=== PATIENT | female | born 1965 | race Two or more races ===

== ENCOUNTER 2021-10-15 17:23 | Inpatient (IN) | payer OTHER ==
[2021-10-15] MEDS ORDERED: Ondansetron 4 MG/2 ML SDV IVPUSH ONE (17:51)
[2021-10-15] MEDS ORDERED: Dextrose 5%-Lactated Ringers 1,000 ML IV SCH (18:00)
[2021-10-15 19:20] LABS: ESTIMATED GFR > 60 mL/min (>60)
[2021-10-15 19:29] LABS: CORONAVIRUS COVID-19 NAA POSITIVE (NEGATIVE)
[2021-10-15] MEDS ORDERED: Sodium Chloride 0.9% 250 ML IV SCH (21:15)
[2021-10-15] MEDS ORDERED: Enoxaparin 40 MG/0.4 ML Syringe SUBCUT STA (21:34)
[2021-10-15] MEDS ORDERED: REMDESIVIR 200 MG in Sodium Chloride 0.9% 250 ML IV ONE (21:36)
[2021-10-15] MEDS ORDERED: Dexamethasone 10 MG/ML SDV IVPUSH STA (21:36)
[2021-10-16] MEDS ORDERED: Potassium Chloride 20 MEQ Tab.ER PO ONE (00:34)
[2021-10-16] MEDS ORDERED: REMDESIVIR 200 MG in Sodium Chloride 0.9% 250 ML IV ONE (03:00)
[2021-10-16 06:42] LABS: ESTIMATED GFR > 60 mL/min (>60)
[2021-10-16] MEDS ORDERED: cefTRIAXone 1 GM in Sodium Chloride 0.9% 100 ML IV SCH (08:00)
[2021-10-16] MEDS: cefTRIAXone 1 GM in Sodium Chloride 0.9% 100 ML IV SCH (08:09)
[2021-10-16] MEDS: Dexamethasone 6 MG TABLET PO SCH (08:09)
[2021-10-16] MEDS ORDERED: Magnesium Sulfate/Water 2 GM/50 ML BAG IV ONE (10:41)
[2021-10-16] MEDS: Lactated Ringers 1,000 ML IV SCH ×2 (13:03→21:13)
[2021-10-16] MEDS: Potassium Chloride 10 MEQ in Premix Bag 1 BAG IV SCH ×4 (13:04→18:26)
[2021-10-16] MEDS: Enoxaparin 30 MG/0.3 ML Syringe SUBCUT SCH ×2 (21:12→23:19)
[2021-10-16] MEDS: traZODone 50 MG Tab PO PRN (21:12)
[2021-10-17] MEDS: REMDESIVIR 100 MG in Sodium Chloride 0.9% 250 ML IV SCH (02:10)
[2021-10-17 07:24] LABS: ESTIMATED GFR > 60 mL/min (>60)
[2021-10-17] MEDS: Lactated Ringers 1,000 ML IV SCH ×2 (08:44→19:25)
[2021-10-17] MEDS: Dexamethasone 6 MG TABLET PO SCH (09:12)
[2021-10-17] MEDS: cefTRIAXone 1 GM in Sodium Chloride 0.9% 100 ML IV SCH (09:12)
[2021-10-17] MEDS ORDERED: Magnesium Sulfate/Water 2 GM/50 ML BAG IV ONE (18:29)
[2021-10-17] MEDS: Morphine 2 MG/ML SYRINGE IVPUSH PRN ×2 (19:16→23:32)
[2021-10-17] MEDS: Enoxaparin 30 MG/0.3 ML Syringe SUBCUT SCH (23:33)
[2021-10-18] MEDS: Morphine 2 MG/ML SYRINGE IVPUSH PRN ×4 (02:43→21:18)
[2021-10-18] MEDS: REMDESIVIR 100 MG in Sodium Chloride 0.9% 250 ML IV SCH (02:43)
[2021-10-18] MEDS: Lactated Ringers 1,000 ML IV SCH (02:52)
[2021-10-18 06:41] LABS: ESTIMATED GFR > 60 mL/min (>60)
[2021-10-18] MEDS: Dexamethasone 6 MG TABLET PO SCH (08:39)
[2021-10-18] MEDS: Folic Acid 1 MG Tab PO SCH (08:39)
[2021-10-18] MEDS: cefTRIAXone 1 GM in Sodium Chloride 0.9% 100 ML IV SCH (08:39)
[2021-10-18 15:46] LABS: ESTIMATED GFR > 60 mL/min (>60)
[2021-10-18] MEDS ORDERED: Ondansetron 4 MG/2 ML SDV IVPUSH PRN (20:58)
[2021-10-18] MEDS: Mirtazapine 30 MG Tab PO SCH (21:18)
[2021-10-18] MEDS: Thiamine 100 MG Tab PO SCH (21:18)
[2021-10-18] MEDS: Enoxaparin 30 MG/0.3 ML Syringe SUBCUT SCH (22:53)
[2021-10-19] MEDS: REMDESIVIR 100 MG in Sodium Chloride 0.9% 250 ML IV SCH (02:03)
[2021-10-19] MEDS: Morphine 2 MG/ML SYRINGE IVPUSH PRN ×4 (03:36→21:59)
[2021-10-19 07:07] LABS: ESTIMATED GFR > 60 mL/min (>60)
[2021-10-19] MEDS: cefTRIAXone 1 GM in Sodium Chloride 0.9% 100 ML IV SCH (08:14)
[2021-10-19] MEDS: Folic Acid 1 MG Tab PO SCH (08:16)
[2021-10-19] MEDS: Dexamethasone 6 MG TABLET PO SCH (08:16)
[2021-10-19] MEDS: Acetaminophen 325 MG Tab PO PRN ×2 (11:31→18:52)
[2021-10-19] MEDS: Pantoprazole 40 MG Tab.CR PO SCH (14:25)
[2021-10-19] MEDS: Mirtazapine 30 MG Tab PO SCH (21:59)
[2021-10-19] MEDS: Thiamine 100 MG Tab PO SCH (21:59)
[2021-10-19] MEDS: Enoxaparin 30 MG/0.3 ML Syringe SUBCUT SCH (21:59)
[2021-10-20] MEDS: REMDESIVIR 100 MG in Sodium Chloride 0.9% 250 ML IV SCH (02:47)
[2021-10-20] MEDS: Morphine 2 MG/ML SYRINGE IVPUSH PRN ×5 (03:02→21:16)
[2021-10-20 06:51] LABS: ESTIMATED GFR > 60 mL/min (>60)
[2021-10-20] MEDS: cefTRIAXone 1 GM in Sodium Chloride 0.9% 100 ML IV SCH (07:41)
[2021-10-20] MEDS: Acetaminophen 325 MG Tab PO PRN ×4 (07:55→23:06)
[2021-10-20] MEDS: Dexamethasone 6 MG TABLET PO SCH ×2 (07:57→09:44)
[2021-10-20] MEDS: Folic Acid 1 MG Tab PO SCH ×2 (07:57→09:44)
[2021-10-20] MEDS: Pantoprazole 40 MG Tab.CR PO SCH ×2 (07:57→09:45)
[2021-10-20] MEDS: Thiamine 100 MG Tab PO SCH (21:16)
[2021-10-20] MEDS: Mirtazapine 30 MG Tab PO SCH (21:16)
[2021-10-20] MEDS: traZODone 50 MG Tab PO PRN (21:56)
[2021-10-20] MEDS: Enoxaparin 30 MG/0.3 ML Syringe SUBCUT SCH (21:59)
[2021-10-21] MEDS: Morphine 2 MG/ML SYRINGE IVPUSH PRN ×7 (00:29→23:29)
[2021-10-21 07:03] LABS: ESTIMATED GFR > 60 mL/min (>60)
[2021-10-21] MEDS ORDERED: Potassium Phosphates 30 MMOLE in Sodium Chloride 0.9% 500 ML IV ONE (09:00)
[2021-10-21] MEDS: Folic Acid 1 MG Tab PO SCH (09:27)
[2021-10-21] MEDS: Dexamethasone 6 MG TABLET PO SCH (09:27)
[2021-10-21] MEDS: Ferrous Sulfate 324 MG Tab.EC PO SCH (09:27)
[2021-10-21] MEDS: Pantoprazole 40 MG Tab.CR PO SCH (09:27)
[2021-10-21] MEDS: Diclofenac Sodium 1% Gel 100 GM Tube TOP PRN ×2 (09:35→20:07)
[2021-10-21] MEDS: Acetaminophen 325 MG Tab PO PRN (11:41)
[2021-10-21] MEDS: Mirtazapine 30 MG Tab PO SCH (20:07)
[2021-10-21] MEDS: Thiamine 100 MG Tab PO SCH (20:07)
[2021-10-21] MEDS: Enoxaparin 30 MG/0.3 ML Syringe SUBCUT SCH ×2 (21:18→23:28)
[2021-10-21] MEDS: traZODone 50 MG Tab PO PRN (21:18)
[2021-10-22] MEDS: Morphine 2 MG/ML SYRINGE IVPUSH PRN ×2 (03:44→06:45)
[2021-10-22] MEDS: Ferrous Sulfate 324 MG Tab.EC PO SCH (06:45)
[2021-10-22 06:50] LABS: ESTIMATED GFR > 60 mL/min (>60)
[2021-10-22] MEDS: Folic Acid 1 MG Tab PO SCH (08:14)
[2021-10-22] MEDS: Dexamethasone 6 MG TABLET PO SCH (08:14)
[2021-10-22] MEDS: Pantoprazole 40 MG Tab.CR PO SCH (08:14)
[2021-10-22] MEDS: Diclofenac Sodium 1% Gel 100 GM Tube TOP PRN (13:56)
[2021-10-22] MEDS: Acetaminophen 325 MG Tab PO PRN (16:16)
[2021-10-22 23:01] LABS: ESTIMATED GFR > 60 mL/min (>60)
[2021-10-23] MEDS: Enoxaparin 30 MG/0.3 ML Syringe SUBCUT SCH ×2 (00:06→22:40)
[2021-10-23] MEDS: Thiamine 100 MG Tab PO SCH ×2 (00:06→20:14)
[2021-10-23] MEDS: Mirtazapine 30 MG Tab PO SCH ×2 (00:06→20:14)
[2021-10-23] MEDS ORDERED: Potassium Phosphates 30 MMOLE in Sodium Chloride 0.9% 500 ML IV ONE (00:30)
[2021-10-23] MEDS: Ferrous Sulfate 324 MG Tab.EC PO SCH (06:28)
[2021-10-23 07:11] LABS: ESTIMATED GFR > 60 mL/min (>60)
[2021-10-23] MEDS: Pantoprazole 40 MG Tab.CR PO SCH (08:33)
[2021-10-23] MEDS: Dexamethasone 6 MG TABLET PO SCH (08:33)
[2021-10-23] MEDS: oxyCODONE 5 MG Tab PO PRN ×2 (08:33→20:19)
[2021-10-23] MEDS: Folic Acid 1 MG Tab PO SCH (08:33)
[2021-10-23] MEDS: Thiamine 500 MG in Sodium Chloride 0.9% 100 ML IV SCH (08:33)
[2021-10-23] MEDS: Diclofenac Sodium 1% Gel 100 GM Tube TOP PRN (10:53)
[2021-10-23] MEDS: Acetaminophen 325 MG Tab PO PRN (22:40)
[2021-10-24] MEDS: Ferrous Sulfate 324 MG Tab.EC PO SCH (06:05)
[2021-10-24 06:34] LABS: ESTIMATED GFR > 60 mL/min (>60)
[2021-10-24] MEDS: Diclofenac Sodium 1% Gel 100 GM Tube TOP PRN (09:15)
[2021-10-24] MEDS: Thiamine 500 MG in Sodium Chloride 0.9% 100 ML IV SCH (09:15)
[2021-10-24] MEDS: oxyCODONE 5 MG Tab PO PRN ×2 (09:16→21:30)
[2021-10-24] MEDS: Folic Acid 1 MG Tab PO SCH (09:17)
[2021-10-24] MEDS: Dexamethasone 6 MG TABLET PO SCH (09:17)
[2021-10-24] MEDS: Pantoprazole 40 MG Tab.CR PO SCH (09:17)
[2021-10-24] MEDS ORDERED: Polyethylene Glycol 3350 Powder 17 GM Packet PO PRN (10:11)
[2021-10-24] MEDS ORDERED: Docusate Sodium 100 MG Cap PO ONE (10:11)
[2021-10-24] MEDS: Acetaminophen 325 MG Tab PO PRN (12:23)
[2021-10-24] MEDS: Mirtazapine 30 MG Tab PO SCH (21:32)
[2021-10-24] MEDS: Enoxaparin 30 MG/0.3 ML Syringe SUBCUT SCH ×2 (21:33→22:03)
[2021-10-24] MEDS: Thiamine 100 MG Tab PO SCH (21:33)
[2021-10-24] MEDS ORDERED: Hydrocortisone Acetate 25 MG Supp RECTAL PRN (22:04)
[2021-10-25] MEDS: Acetaminophen 325 MG Tab PO PRN ×3 (01:01→14:27)
[2021-10-25] MEDS: Diclofenac Sodium 1% Gel 100 GM Tube TOP PRN ×3 (01:05→16:02)
[2021-10-25] MEDS: Ferrous Sulfate 324 MG Tab.EC PO SCH (06:14)
[2021-10-25 06:15] LABS: ESTIMATED GFR > 60 mL/min (>60)
[2021-10-25] MEDS: Pantoprazole 40 MG Tab.CR PO SCH (09:14)
[2021-10-25] MEDS: Dexamethasone 6 MG TABLET PO SCH (09:14)
[2021-10-25] MEDS: Folic Acid 1 MG Tab PO SCH (09:14)
[2021-10-25] MEDS: Thiamine 500 MG in Sodium Chloride 0.9% 100 ML IV SCH (09:18)
[2021-10-25] MEDS: oxyCODONE 5 MG Tab PO PRN (09:42)
[2021-10-25] MEDS: Sertraline 50 MG Tab PO SCH (14:27)
[2021-10-25] MEDS: oxyCODONE 5 MG Tab PO SCH (20:22)
[2021-10-25] MEDS: Ibuprofen 600 MG Tab PO SCH (20:23)
[2021-10-25] MEDS: Mirtazapine 30 MG Tab PO SCH (20:23)
[2021-10-25] MEDS: Thiamine 100 MG Tab PO SCH (20:23)
[2021-10-25] MEDS: Enoxaparin 30 MG/0.3 ML Syringe SUBCUT SCH ×2 (20:27→23:15)
[2021-10-25] MEDS ORDERED: Mirtazapine 15 MG Tab PO SCH (21:00)
[2021-10-26] MEDS: Ferrous Sulfate 324 MG Tab.EC PO SCH ×2 (05:55→08:16)
[2021-10-26 06:31] LABS: ESTIMATED GFR > 60 mL/min (>60)
[2021-10-26] MEDS: oxyCODONE 5 MG Tab PO SCH ×2 (08:58→21:11)
[2021-10-26] MEDS: Folic Acid 1 MG Tab PO SCH (08:58)
[2021-10-26] MEDS: Sertraline 50 MG Tab PO SCH (08:58)
[2021-10-26] MEDS: Pantoprazole 40 MG Tab.CR PO SCH (08:58)
[2021-10-26] MEDS: Ibuprofen 600 MG Tab PO SCH ×2 (08:58→21:10)
[2021-10-26] MEDS ORDERED: Gadobenate Dimeglumine 529 MG/ML 15 ML SDV IVPUSH ONE (12:39)
[2021-10-26] MEDS ORDERED: Sodium Chloride 0.9% 10 ML Syringe FLUSH SCH (12:45)
[2021-10-26] MEDS: Acetaminophen 325 MG Tab PO PRN (16:57)
[2021-10-26] MEDS: Mirtazapine 30 MG Tab PO SCH (21:11)
[2021-10-26] MEDS: Thiamine 100 MG Tab PO SCH (21:11)
[2021-10-26] MEDS: Enoxaparin 30 MG/0.3 ML Syringe SUBCUT SCH (23:38)
[2021-10-27] MEDS: Acetaminophen 325 MG Tab PO PRN ×2 (03:48→14:30)
[2021-10-27] MEDS: Ferrous Sulfate 324 MG Tab.EC PO SCH ×2 (03:49→06:16)
[2021-10-27] MEDS: oxyCODONE 5 MG Tab PO SCH (08:26)
[2021-10-27] MEDS: Ibuprofen 600 MG Tab PO SCH (08:26)
[2021-10-27] MEDS: Sertraline 50 MG Tab PO SCH (08:27)
[2021-10-27] MEDS: Pantoprazole 40 MG Tab.CR PO SCH (08:29)
[2021-10-27] MEDS: Folic Acid 1 MG Tab PO SCH (08:29)
[2021-10-27 16:15] VITALS: BP 107/74; PULSE 104
== END 2021-10-27 17:15 | disposition other institution (70) | DRG 177 ==
LOC: JD.ED 17:23 → JD.MS 10-16 01:01
PROVIDERS: ADMIT Internal Medicine; ATTEND Internal Medicine
PROC: 3E0333Z Introduction of Anti-inflammatory into Peripheral Vein, Percutaneous Approach (ICD-10-PCS; 2021-10-16)
PROC: 30233N1 Transfusion of Nonautologous Red Blood Cells into Peripheral Vein, Percutaneous Approach (ICD-10-PCS; 2021-10-16)
PROC: 3E0DX3Z Introduction of Anti-inflammatory into Mouth and Pharynx, External Approach (ICD-10-PCS; 2021-10-16)
PROC: XW033E5 Introduction of Remdesivir Anti-infective into Peripheral Vein, Percutaneous Approach, New Technology Group 5 (ICD-10-PCS; principal; 2021-10-17)
PROC: 0D9670Z Drainage of Stomach with Drainage Device, Via Natural or Artificial Opening (ICD-10-PCS; 2021-10-26)
DX: U07.1 COVID-19 (principal); E43 Unspecified severe protein-calorie malnutrition; J12.82 Pneumonia due to coronavirus disease 2019; J96.01 Acute respiratory failure with hypoxia; E87.1 Hypo-osmolality and hyponatremia; F32.2 Major depressive disorder, single episode, severe without psychotic features; Z68.1 Body mass index [BMI] 19.9 or less, adult; E80.6 Other disorders of bilirubin metabolism; E88.09 Other disorders of plasma-protein metabolism, not elsewhere classified; E87.6 Hypokalemia; D50.8 Other iron deficiency anemias; F15.10 Other stimulant abuse, uncomplicated; M81.0 Age-related osteoporosis without current pathological fracture; M06.9 Rheumatoid arthritis, unspecified; F11.10 Opioid abuse, uncomplicated; G47.00 Insomnia, unspecified; D32.9 Benign neoplasm of meninges, unspecified; F17.210 Nicotine dependence, cigarettes, uncomplicated
CPT/HCPCS: 0240U; 36415; 36430; 36600; 70450; 70450-26; 70551; 70551-26; 70552; 70552-26; 71045; 71045-26; 71275; 71275-26; 73020-26-RT; 73020-RT; 80048; 80053; 80306; 81001; 82009; 82553; 82607; 82728; 82746; 82803; 82947; 83540; 83605; 83690; 83735; 83880; 84075; 84080; 84100; 84443; 84466; 84484; 85007; 85025; 85027; 85379; 85610; 85652; 85730; 86140; 86803; 86850; 86900; 86901; 86922; 87040; 92610-GN; 93005; 93010; 94762; 96361; 96372; 96374; 97110-GP; 97116-GP; 97162-GP; 97530-GP; 99284; 99285-25; A9270-GY; A9577; G0433; J0696; J1100; J1650; J2270; J2405; J3411; J3475; J3480; J3490; J7040; J7050; J7120; J7121; J8540; P9016; Q3014